=== PATIENT | female | born 1945 | race Caucasian/White ===

== ENCOUNTER 2017-08-25 09:24 | Outpatient (CLI) | payer MEDICARE ==
[2015-08-16 09:47] VITALS: BP 115/70
[2017-08-25 09:51] LABS: BASOPHILS % 1.1 (0.0-1.5); EOSINOPHILS % 2.9 % (0.0-6.8); MEAN CORPUSCULAR HEMOGLOBIN 32.9 pg (28.0-34.0); MEAN CORPUSCULAR VOLUME 98.7 fl (80.0-100.0); NEUTROPHILS # 3.4 # k/uL (1.4-7.7)
== END 2017-08-25 09:39 ==
LOC: LAB 09:24
PROVIDERS: ATTEND Family Medicine
DX: R22.1 Localized swelling, mass and lump, neck (principal)
CPT/HCPCS: 36415; 84443; 85025

== ENCOUNTER 2018-11-03 08:41 | Outpatient (CLI) | payer MEDICARE ==
[2015-08-16 09:47] VITALS: BP 115/70
--- NOTE | 2018-11-03 09:47 | Diagnostic Imaging Report ---
CORKY MARIE [facility] [id number] [id number] Report Submission Date: November 03, 2018 9:25:33 AM CDT Patient Study Name: ANNY MOORE Date: November 03, 2018 8:48:05 AM CDT Modality Type: US Gender: F Description: US AAA SCREEN MEDICARE : 47 Institution: [facility] Physician: CORKY MARIE Examination: Ultrasound aorta History: Evaluate for aneurysm - father with aortic aneurysm / screening Comparison exams: None available Findings: Proximal aorta measures 2.8 cm maximally. Mid aorta measures 2.7 cm maximally. Distal aorta measures 1.9 cm maximally. Iliac vessels measure 1.2 cm. No peripheral calcification or thrombus. Impression: No evidence for abdominal aortic aneurysm Electronically signed on November 03, 2018 9:25:33 AM CDT by: Lincoln POWELL
== END 2018-11-03 09:05 ==
LOC: RAD 08:41
PROVIDERS: ATTEND Family Medicine
DX: Z82.49 Family history of ischemic heart disease and other diseases of the circulatory system (principal)